=== PATIENT | female | born 1990 | race Asian ===

== ENCOUNTER 2018-05-24 12:38 | Emergency (ER) | payer SELFPAY ==
[~2018-05-24] VITALS: Ht 157.5 cm; Wt 63.6 kg
[2018-05-24] MEDS ORDERED: LORA10TA7 PO (12:47)
[2018-05-24 13:16] VITALS: BP 122/71
== END 2018-05-24 13:40 | disposition home or self-care (01) ==
LOC: EMS 12:40
DX: H10.13 Acute atopic conjunctivitis, bilateral (principal); J45.909 Unspecified asthma, uncomplicated; Z88.8 Allergy status to other drugs, medicaments and biological substances

== ENCOUNTER 2019-10-19 10:34 | Inpatient (IN) | payer MEDICAID ==
[~2019-10-19] VITALS: Ht 160 cm; Wt 54.5 kg
[~2019-10-19 10:34] MED LIST: LORA10TA7 PO
[2019-10-19] MEDS ORDERED: ZOLPIDEM TARTRATE 10 MG TABLET PO PRN (14:15)
[2019-10-19] MEDS ORDERED: HALOPERIDOL 5 MG TABLET PO PRN (14:15)
[2019-10-19 14:17] VITALS: BP 104/63
[2019-10-19 16:00] VITALS: BP 102/62
[2019-10-19] MEDS: LORazepam 2 MG TABLET PO PRN (19:54)
[2019-10-20 01:29] VITALS: BP 103/71
[2019-10-20] MEDS ORDERED: BACITRACIN 28.4 GM OINTMENT TP PRN (06:30)
[2019-10-20] MEDS ORDERED: ALBUTEROL SULFATE HFA 90 MCG/PUFF 8 GM INHALER IH PRN (06:30)
[2019-10-20] MEDS ORDERED: DOCUSATE SODIUM 100 MG CAPSULE PO PRN (06:30)
[2019-10-20] MEDS ORDERED: LOPERAMIDE HCL 2 MG CAPSULE PO PRN (06:30)
[2019-10-20] MEDS ORDERED: ACETAMINOPHEN 325 MG TABLET PO PRN (06:30)
[2019-10-20] MEDS ORDERED: OMEPRAZOLE 20 MG CAPSULE PO PRN (06:30)
[2019-10-20] MEDS ORDERED: CloNIDine HCL 0.1 MG TABLET PO PRN (06:30)
[2019-10-20] MEDS ORDERED: MAGNESIUM HYDROXIDE SUSPENSION 30 ML UDCUP PO PRN (06:30)
[2019-10-20] MEDS ORDERED: MAG HYDROX/AL HYDROX/SIMETH ES 30 ML SUSPENSION UDCUP PO PRN (06:30)
[2019-10-20] MEDS ORDERED: PETROLATUM,WHITE 28 GM JELLY TP PRN (06:30)
[2019-10-20] MEDS ORDERED: IBUPROFEN 600 MG TABLET PO PRN (06:30)
[2019-10-20] MEDS ORDERED: BENZOCAINE/MENTHOL LOZENGE MM PRN (06:30)
[2019-10-20] MEDS ORDERED: ONDANSETRON HCL 4 MG TABLET PO PRN (06:30)
[2019-10-20] MEDS: LITHIUM CARBONATE 300 MG CAPSULE PO SCH ×2 (09:22→16:43)
[2019-10-20] MEDS: ARIPiprazole 15 MG TABLET PO SCH (09:23)
[2019-10-20 10:08] VITALS: BP 93/65
[2019-10-20 16:14] VITALS: BP 111/68
[2019-10-20] MEDS: MIRTAZAPINE 15 MG TABLET PO SCH (20:06)
[2019-10-21 06:12] VITALS: BP 118/75
[2019-10-21 08:14] VITALS: BP 106/60
[2019-10-21] MEDS: LITHIUM CARBONATE 300 MG CAPSULE PO SCH ×2 (09:00→17:00)
[2019-10-21] MEDS: ARIPiprazole 15 MG TABLET PO SCH (09:07)
[2019-10-21] MEDS: LORazepam 2 MG TABLET PO PRN (09:15)
[2019-10-21 16:36] VITALS: BP 104/60
[2019-10-21] MEDS: RisperiDONE 2 MG TABLET PO SCH (17:09)
[2019-10-21] MEDS: MIRTAZAPINE 15 MG TABLET PO SCH (20:31)
[2019-10-22 01:36] VITALS: BP 100/60
[2019-10-22] MEDS: RisperiDONE 2 MG TABLET PO SCH ×2 (08:12→16:40)
[2019-10-22] MEDS: ARIPiprazole 15 MG TABLET PO SCH (08:12)
[2019-10-22] MEDS: LITHIUM CARBONATE 300 MG CAPSULE PO SCH (08:13)
[2019-10-22 08:34] VITALS: BP 100/68
[2019-10-22 17:36] VITALS: BP 99/63
[2019-10-22] MEDS: MIRTAZAPINE 15 MG TABLET PO SCH ×2 (20:58→21:00)
[2019-10-23 03:51] VITALS: BP 103/64
[2019-10-23] MEDS: ARIPiprazole 15 MG TABLET PO SCH (08:11)
[2019-10-23] MEDS: RisperiDONE 2 MG TABLET PO SCH ×2 (08:11→16:10)
[2019-10-23 09:26] VITALS: BP 102/70
[2019-10-23 17:45] VITALS: BP 108/62
[2019-10-23] MEDS: MIRTAZAPINE 15 MG TABLET PO SCH (20:07)
[2019-10-24 05:05] VITALS: BP 100/60
[2019-10-24] MEDS: ARIPiprazole 15 MG TABLET PO SCH (08:07)
[2019-10-24] MEDS: RisperiDONE 2 MG TABLET PO SCH ×2 (08:07→16:33)
[2019-10-24 08:54] VITALS: BP 110/70
[2019-10-24 16:10] VITALS: BP 113/67
[2019-10-24] MEDS: MIRTAZAPINE 15 MG TABLET PO SCH (20:23)
[2019-10-24] MEDS: LORazepam 2 MG TABLET PO PRN (22:29)
[2019-10-25 07:12] VITALS: BP 120/75
[2019-10-25] MEDS: RisperiDONE 2 MG TABLET PO SCH ×2 (08:26→16:48)
[2019-10-25] MEDS: ARIPiprazole 15 MG TABLET PO SCH (08:26)
[2019-10-25 08:32] VITALS: BP 118/74
[2019-10-25 10:15] VITALS: BP 102/68
[2019-10-25 16:10] VITALS: BP 102/68
[2019-10-25] MEDS: MIRTAZAPINE 15 MG TABLET PO SCH (21:00)
[2019-10-26 01:55] VITALS: BP 117/69
[2019-10-26] MEDS ORDERED: ARIP15TA2 PO (08:07)
[2019-10-26] MEDS ORDERED: MIRT-89 PO (08:08)
[2019-10-26] MEDS ORDERED: RISP2TAB23 PO (08:08)
[2019-10-26 08:12] VITALS: BP 100/61
[2019-10-26] MEDS: RisperiDONE 2 MG TABLET PO SCH (08:23)
[2019-10-26] MEDS: ARIPiprazole 15 MG TABLET PO SCH (08:23)
== END 2019-10-26 10:15 | disposition home or self-care (01) | DRG 885 ==
LOC: B2S 13:57
PROVIDERS: ADMIT Psychiatry & Neurology Psychiatry; ATTEND Psychiatry & Neurology Psychiatry
DX: F31.9 Bipolar disorder, unspecified (principal); F43.10 Post-traumatic stress disorder, unspecified; G47.00 Insomnia, unspecified; J31.0 Chronic rhinitis; F22 Delusional disorders; Z91.5 Personal history of self-harm
CPT/HCPCS: 87081; Z7610